=== PATIENT | female | born 1995 | race Caucasian/White ===

== ENCOUNTER 2017-04-11 19:11 | Emergency (ER) | payer OTHER ==
[2017-04-11 19:22] VITALS: RESP 16; TEMP 98.2
--- NOTE | 2017-04-11 19:32 | EDPHY ---
H & P HPI/ROS: CHIEF COMPLAINT: Left patellar dislocation HISTORY OF PRESENT ILLNESS: This patient is a 21 y/o female arriving via EMS for evaluation of a left patellar dislocation. She was moving a table at work, and the side of the table nudged her left patella, which popped laterally. She noted a marked deformity and severe pain, and was unable to move her leg. She was able to sit with help with her left leg straight in front of her, and summoned EMS. EMS administered pain medication en route to the emergency department. She noted that she did not feel pain as expected, and discovered the dislocation had spontaneously resolved in transport. No prior similar sx. No other recent trauma or further complaints. REVIEW OF SYSTEMS: A 10 point review of systems was performed and is negative with the exception of the elements mentioned in the history of present illness. Past Medical/Surgical History: Denies. Social History: Worker's Comp patient. Friends at bedside. Lives in [place]. Smoking Status: Never smoked Physical Exam: Alert, pleasant Extremities: left knee-normal inspection, no tenderness or swelling, no effusion , ROM not assessed Skin: Warm and dry Neuro: Motor and sensory intact Vascular: Capillary refill brisk distally Constitutional: Initial Vital Signs Temperature (C) 36.8 C 04/11/17 19:19 Heart Rate 67 04/11/17 19:19 Respiratory Rate 16 04/11/17 19:19 Blood Pressure 134/87 H 04/11/17 19:19 O2 Sat (%) 100 04/11/17 19:19 O2 Delivery Mode Room Air Allergies/Adverse Reactions: No Known Allergies Allergy (Unverified 04/11/17 19:22) Home Medications: Medication Instructions Recorded NK [No Known Home Meds] 04/11/17 Medical Decision Making - Diagnostics Imaging Results: XRAY: NAD Imaging: I viewed and interpreted images myself ED Course/Re-evaluation: 21 y/o female presents with left patellar dislocation, spontaneously resolved. Normal inspection of LLE, ROM not tested. Plan for x-ray to evaluate for acute osseous abnormalities. 20:08 X-ray negative. Plan to d/c home in good condition with knee immobilizer and referral to orthopedics. Follow up and return precautions discussed. The patient is comfortable with this plan. Departure - Departure Disposition: Home, Routine, Self-Care Clinical Impression: Patellar dislocation Qualifiers: Encounter type: initial encounter Laterality: left Qualified Code(s): S83.005A - Unspecified dislocation of left patella, initial encounter Condition: Good Instructions: Patellar Dislocation (ED), Knee Immobilizer (ED) Additional Instructions: 1. Follow up with an technician inventory specialist this week for further evaluation. Wear your knee immobilizer until reevaluation (you may take it off for bathing and sleeping). 2. You may take ibuprofen or Tylenol as directed below as needed for pain. 3. Return to the emergency department for recurrent dislocation, worsening pain , swelling, numbness, weakness or other concerns. Adult Pain & Fever Control: We recommend Acetaminophen (Tylenol) and Ibuprofen (Motrin,Advil) for pain and fever control. When fever is high or pain severe, both drugs can be used at the same time, but at different intervals. Please note the time differences. Your dose is: Acetaminophen 650mg every 4 to 6 hours Ibuprofen 600mg every 6-8 hours with food Note: do not take Acetaminophen with Hydrocodone (Vicodin, Lortab) or Oxycodone (Percocet). These medications also contain Acetaminophen. No more than 3000mg of Acetaminophen should be taken in 24 hours (for an adult). Referrals: Ramana Lees MD [Medical Doctor] - As per Instructions Report Scribed for: Cheyenne Geiger Report Scribed by: Dolores Orta Date of Report: 04/11/17 Time of Report: 20:12 Physician Review and Approval Statement: 04/11/17 20:12 Portions of this note were transcribed by a medical billing clerk. I personally performed a history, physical exam, medical decision making, and confirmed accuracy of information the transcribed note.
[2017-04-11 20:27] VITALS: BP 107/68; PULSE 53; O2SAT 97
== END 2017-04-11 20:24 | disposition home or self-care (01) ==
DX: S83.005A Unspecified dislocation of left patella, initial encounter (principal); X58.XXXA Exposure to other specified factors, initial encounter
CPT/HCPCS: L1830